=== PATIENT | male | born 1980 | race Two or more races ===

== ENCOUNTER → 2021-10-20 | Outpatient (CLI) | payer OTHER ==
[2021-10-20 14:52] LABS: Basophils # (A) 0.06 X 10*3/uL (0.00-0.10); Basophils % (A) 0.7 %; Eosinophils # (A) 0.31 X 10*3/uL (0.04-0.35); Eosinophils % (A) 3.4 %; HCT 42.7 % (39.6-50.0); HGB 13.6 g/dL (13.0-17.0); Immature Grans, Automated 0.2 %; Lymphocytes # (A) 4.44 X 10*3/uL (0.90-5.00); Lymphocytes % (A) 48.3 %; MCH 29.4 pg (27.0-32.0); MCHC 31.9 g/dL (32.0-37.0); MCV 92.4 fL (80.0-97.0); Mean Platelet Volume 11.3 fL (9.5-12.2); Monocytes # (A) 0.47 X 10*3/uL (0.20-1.00); Monocytes % (A) 5.1 %; NRBC Per 100 WBC 0 /100 WBCS (0.0-0.0); Neutrophils # (A) 3.89 X 10*3/uL (1.80-7.70); Neutrophils % (A) 42.3 %; Platelet Count 162 X 10*3/uL (140-440); RBC 4.62 X 10*6/uL (4.40-5.60); RDW 14.1 % (11.5-14.5); WBC 9.19 X 10*3/uL (4.50-10.00)
[2021-10-20 15:09] LABS: ALT 31 U/L (10-49); AST 32 U/L (14-35); African American GFR (CKD) 99.1 (60.0-200.0); Albumin 4.4 g/dL (3.8-4.9); Albumin/Globulin Ratio 1.48 (1.60-3.17); Alkaline Phosphatase 58 U/L (41-126); Blood Urea Nitrogen 17.7 mg/dL (9.0-27.0); Calcium 9.2 mg/dL (8.7-10.3); Carbon Dioxide 23.8 mmol/L (20.0-27.5); Chloride 103 mmol/L (96-109); Chol/HDL Ratio 4.61 Ratio; Glucose 91 mg/dL (70-110); LDL Cholesterol,Calculated 120.7 mg/dL (0.0-131.0); Non-African American GFR(CKD) 85.5 (60.0-200.0); Potassium 4.2 mmol/L (3.5-5.5); Sodium 138 mmol/L (135-145); Total Protein 7.4 g/dL (6.2-8.2)
[2021-10-20 16:50] LABS: Appearance,Urine Clear (Clear); Bilirubin,Urine Negative (Negative); Blood,Urine Negative (Negative); Color,Urine Yellow (Yellow); Ketones,Urine Trace mg/dL (Negative); Nitrite,Urine Negative (Negative); Specific Gravity,Urine 1.034 (1.001-1.030); Urobilinogen,Urine 0.2 (0.2,1.0)
== END | disposition home or self-care (01) ==
LOC: LABWHC1 08:05
PROVIDERS: ATTEND Internal Medicine
DX: Z00.00 Encounter for general adult medical examination without abnormal findings (principal); N40.0 Benign prostatic hyperplasia without lower urinary tract symptoms
CPT/HCPCS: 36415; 80053; 80061; 81001; 84153; 84443; 85025

== ENCOUNTER 2024-01-28 10:54 | Day surgery (SDC) | payer OTHER ==
[2024-01-27 09:27] VITALS: BMI 25.7
[~2024-01-28 10:54] MED LIST: LIDOCAINE 1% (10MG/ML) FOR IV START INTRADERMA PRN
[2024-01-28] MEDS: IV FLUID CONTINUATION 1,000 ML IV ONE (12:03)
[2024-01-28 12:10] VITALS: TEMP 97.1
[2024-01-28] MEDS: LACTATED RINGERS 1,000 ML IV SCH (12:14)
[2024-01-28] MEDS ORDERED: PROPOFOL 10 MG/ML 20 ML VIAL IV ONE (12:46)
--- NOTE | 2024-01-28 13:05 | P.PCN ---
Date of Procedure: 01/28/24 Procedure(s) Performed: BRIEF HISTORY: Patient is a 43-year-old pleasant male scheduled for an elective colonoscopy as a part of screening for colorectal neoplasia . PROCEDURE PERFORMED: Colonoscopy. PREOPERATIVE DIAGNOSIS: Screening for colon cancer. IV sedation per Anesthesia. PROCEDURE: After informed consent was obtained, the patient, was brought into the endoscopy unit. IV sedation was administered by Anesthesia under continuous monitoring. Digital rectal examination was normal. Initially the Olympus CF-160 flexible video colonoscope was then inserted in the rectum, gradually advanced into the cecum without any difficulty. Careful examination was performed as the scope was gradually being withdrawn. Ileocecal valve and the appendiceal orifice were visualized and appeared normal. Prep was fair. Mucosa of the cecum, ascending colon, some sticky stool that was thoroughly irrigated. No polyps identified. Mucosa of the transverse colon, descending colon, sigmoid colon, and rectum appeared normal. Retroflexion was performed in the rectum and no lesions were seen. The patient tolerated the procedure well. IMPRESSION: Normal-appearing colon from rectum to cecum no evidence of colorectal neoplasia. RECOMMENDATIONS: Findings of this examination were discussed with the patient a s well as his family. He was advised to have repeat screening colonoscopy in 10 years.
[2024-01-28 13:36] VITALS: BP 117/79; PULSE 65; RESP 18
== END 2024-01-28 13:39 | disposition home or self-care (01) ==
LOC: ORWHC2ENDO 10:54
PROVIDERS: ATTEND Internal Medicine Gastroenterology
DX: Z12.11 Encounter for screening for malignant neoplasm of colon (principal)
CPT/HCPCS: J2704; G0121